=== PATIENT | female | born 1960 | race Caucasian/White ===

== ENCOUNTER 2016-06-13 18:51 | Emergency (ER) | payer BC ==
[2016-06-13 18:35] LABS: BUN (BLOOD UREA NITROGEN) 12 MG/DL (6-23); CALCIUM, SERUM 8.4 MG/DL (8.5-10.4); CHEST PAIN PROFILE TAT 0 Hrs 20 Mins; CHLORIDE, SERUM 100 MMOL/L (96-112); CO2 (CARBON DIOXIDE) 36 MMOL/L (24-34); CREATININE 0.83 MG/DL (0.55-1.02); GFR AFRICAN AMERICAN 92 ML/MIN (>=60); GFR NON AFRICAN AMERICAN 79 ML/MIN (>=60); GLUCOSE, SERUM 96 MG/DL (60-99); POTASSIUM, SERUM 3.6 MMOL/L (3.5-5.3); SODIUM, SERUM 142 MMOL/L (135-148); TROPONIN I <0.02 NG/ML (<0.05)
[2016-06-13] MEDS ORDERED: PEP20 PO (19:30)
[2016-06-13] MEDS ORDERED: NORV5 PO (19:30)
[2016-06-13] MEDS ORDERED: COREG6 PO (19:31)
[2016-06-13] MEDS ORDERED: IBU600 PO (19:32)
[2016-06-13] MEDS ORDERED: CELEXA40 MG PO (19:32)
[2016-06-13] MEDS ORDERED: CENTRUM PO (19:32)
[2016-06-13] MEDS ORDERED: ASPERCREME TOP (19:33)
[2016-06-13] MEDS ORDERED: VISINE-A EYE AL15 ML OPH (19:34)
[2016-06-13 20:11] LABS: INTERNATIONAL NORMAL RATI 1.1 UNITS (-); PROTIME (NOT ORD) 13.8 SEC (12.0-14.5)
[2016-06-13 20:19] LABS: PARTIAL THROMBO TIME 30.8 SEC (22.5-37.2)
[2016-06-13 22:09] LABS: HEMATOCRIT 40.3 % (36.0-48.0); MEAN CORPUSCULAR VOLUME 87.6 fL (80-100); WHITE BLOOD CELLS 9.6 10/3/uL (4.5-10.5)
[2016-06-13 22:10] LABS: BASOPHILS 0.2 %; BASOPHILS ABSOLUTE 0.02 10/3/uL (0.0-0.16); EOSINOPHILS 3.4 %; EOSINOPHILS ABSOLUTE 0.33 10/3/uL (0.0-0.53); IMMATURE GRANULOCYTES 0.5 %; IMMATURE GRANULOCYTES ABSOLUTE 0.05 10/3/uL (0.0-0.11); LYMPHOCYTES 15.9 %; LYMPHOCYTES ABSOLUTE 1.53 10/3/uL (0.67-4.30); MEAN CORPUS HGB CONC 32.3 g/dL (32.0-36.0); MEAN CORPUSCULAR HEMOGLOB 28.3 pg (26.0-34.0); MEAN PLATELET VOLUME 9.2 fL (9.2-13.0); MONOCYTES ABSOLUTE 0.67 10/3/uL (0.21-1.20); NEUTROPHILS ABSOLUTE 7.03 10/3/uL (2.02-8.40); PLATELET COUNT 213 10/3/uL (150-400)
[2016-06-13 22:11] LABS: MANUAL DIFF NO %; RBC DISTRIBUTION WIDTH 17.1 % (12.0-16.0)
[2016-06-13 22:14] LABS: ER CBC TAT 5 Hrs 00 Mins
[2016-06-14 20:21] LABS: ALLENS TEST Pos; CARBOXYHEMOGLOBIN 1.6 % (0-3); HCO3 (ACTUAL BICARBONATE) 32.9 MEQ/L (23-27); HEMOBLOGIN CONTENT 13.1 G/DL (12-16); INSTRUMENT SERIAL # 8087; METHEMOGLOBIN 0.3 % (0-3); O2 CONTENT 16.3 VOL% (18-24); PCO2 (CO2 TENSION) 52 MMHG (35-45); PO2 (O2 TENSION) 60 MMHG (79-93); SAMPLE Arterial; pH 7.42 (7.37-7.43)
== END 2016-06-13 22:51 | disposition home or self-care (01) ==
LOC: ER 18:51
PROVIDERS: Nurse Practitioner
DX: R09.02 Hypoxemia (principal); E87.5 Hyperkalemia; I10 Essential (primary) hypertension; Z88.0 Allergy status to penicillin; Z79.899 Other long term (current) drug therapy
CPT/HCPCS: 36600; 71010; 80048; 82805; 83735; 83880; 84484; 85025; 85610; 85730; 93005; 99285